=== PATIENT | female | born 2005 | race Caucasian/White ===

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

== ENCOUNTER 2023-02-27 11:19 | Emergency (ER) | payer SELFPAY ==
[~2023-02-27] VITALS: Ht 160 cm; Wt 52.2 kg
[2023-02-27 11:54] LABS: BILIRUBIN Negative (Negative); BLOOD 3+ (Negative); CLARITY Clear (Clear); COLOR Yellow (Yellow); GLUCOSE Negative (Negative); KETONE Negative (Negative); LEUKO ESTERASE Negative (Negative); NITRITE Negative (Negative); PH 6.5 (4.5-8.0); SPECIFIC GRAVITY >= 1.030 (1.001-1.030)
[2023-02-27 12:01] LABS: BASO # 0.1 10*3/uL (0.0-0.1); BASO % 1.2 % (0.0-1.0); EOS # 0.1 10*3/uL (0.0-0.4); EOS % 2.9 % (1.0-4.0); HEMATOCRIT 39.1 % (37.0-47.0); LYMPH # 1.4 10*3/uL (1.3-4.4); LYMPH % 32.8 % (27.0-41.0); MEAN CELL VOLUME 90.7 fl (81.0-99.0); MEAN CORPUSCULAR HGB 31.1 pg (27.0-31.0); MEAN CORPUSCULAR HGB CONC 34.3 g/dl (33.0-37.0); MEAN PLATELET VOLUME 10.4 fl (9.6-12.3); MONO # 0.5 10*3/uL (0.1-1.0); MONO % 10.8 % (3.0-9.0); NEUT # 2.2 10*3/uL (2.3-7.9); NEUT % 52.1 % (47.0-73.0); PLATELET COUNT AUTOMATED 217 10*3/uL (130-400); RED BLOOD COUNT 4.31 10*6/uL (4.10-5.10); RED CELL DISTRI WIDTH 11.9 % (0-14.5); WHITE BLOOD COUNT 4.2 10*3/uL (4.8-10.8)
[2023-02-27 12:13] LABS: ACT PARTIAL THROMBO TIME 30.8 SECONDS (20.0-32.1); INTERNATIONAL NORM RATIO 1.1 (2.0-3.5)
[2023-02-27 12:25] LABS: BACTERIA TRACE; EPITHELIAL CELLS 16-20
[2023-02-27 12:26] LABS: ALKALINE PHOSPHATASE 73 U/L (46-116); BETA-HCG, QUANT < 3.0 mIU/mL (3-10); BUN 10 mg/dl (9-23); CHLORIDE 107 mmol/L (98-107); LIPASE 40 U/L (12-53); POTASSIUM 3.8 mmol/L (3.4-5.1); SGPT/ALT 13 U/L (10-49); TOTAL PROTEIN 7.8 gm/dL (6.0-8.0)
== END 2023-02-27 13:03 | disposition home or self-care (01) ==
LOC: ED 11:19
PROVIDERS: Internal Medicine
DX: N93.9 Abnormal uterine and vaginal bleeding, unspecified (principal); E16.2 Hypoglycemia, unspecified; Z98.890 Other specified postprocedural states; Z79.899 Other long term (current) drug therapy

== ENCOUNTER 2024-03-06 00:08 | Emergency (ER) | payer OTHER ==
[~2024-03-06] VITALS: Ht 160 cm; Wt 54.9 kg
[2024-03-06] MEDS ORDERED: ACETAMINOPHEN 325 MG TAB PO ONE (00:25)
== END 2024-03-06 01:29 | disposition home or self-care (01) ==
LOC: ED 00:08
DX: O26.892 Other specified pregnancy related conditions, second trimester (principal); F66 Other sexual disorders; Z98.890 Other specified postprocedural states; Z3A.22 22 weeks gestation of pregnancy

== ENCOUNTER 2024-04-17 14:39 | Emergency (ER) | payer OTHER ==
[~2024-04-17] VITALS: Ht 157.4 cm; Wt 59.9 kg
[2024-04-17] MEDS ORDERED: Ondansetron Hydrochloride 4 MG TAB PO ONE (15:25)
[2024-04-17 15:37] LABS: BASO # 0.1 10*3/uL (0.0-0.1); BASO % 0.5 % (0.0-1.0); EOS # 0.1 10*3/uL (0.0-0.4); HEMATOCRIT 31.1 % (37.0-47.0); LYMPH # 1.5 10*3/uL (1.3-4.4); LYMPH % 13.9 % (27.0-41.0); MEAN CORPUSCULAR HGB 32.5 pg (27.0-31.0); MEAN CORPUSCULAR HGB CONC 35.4 g/dl (33.0-37.0); MEAN PLATELET VOLUME 9.4 fl (9.6-12.3); MONO # 1.1 10*3/uL (0.1-1.0); MONO % 10.9 % (3.0-9.0); NEUT # 7.6 10*3/uL (2.3-7.9); NEUT % 72.7 % (47.0-73.0); PLATELET COUNT AUTOMATED 261 10*3/uL (130-400); RED BLOOD COUNT 3.38 10*6/uL (4.10-5.10); RED CELL DISTRI WIDTH 12.7 % (0-14.5); WHITE BLOOD COUNT 10.5 10*3/uL (4.8-10.8)
[2024-04-17 16:03] LABS: ALKALINE PHOSPHATASE 82 U/L (46-116); BUN 7 mg/dl (9-23); CHLORIDE 104 mmol/L (98-107); POTASSIUM 4.1 mmol/L (3.4-5.1); SGPT/ALT 9 U/L (5-49); TOTAL PROTEIN 6.7 gm/dL (6.0-8.0)
[2024-04-17 16:24] LABS: BILIRUBIN Negative (Negative); BLOOD Negative (Negative); CLARITY Clear (Clear); COLOR Yellow (Yellow); GLUCOSE Negative (Negative); KETONE Negative (Negative); LEUKO ESTERASE Negative (Negative); NITRITE Negative (Negative); PH 6.5 (4.5-8.0); SPECIFIC GRAVITY 1.015 (1.001-1.030)
[2024-04-17 16:39] LABS: BACTERIA 1+
== END 2024-04-17 17:18 | disposition home or self-care (01) ==
LOC: ED 14:39
PROVIDERS: Physician Assistant Medical
DX: O21.8 Other vomiting complicating pregnancy (principal); R42 Dizziness and giddiness; Z98.890 Other specified postprocedural states; Z3A.28 28 weeks gestation of pregnancy

== ENCOUNTER 2025-04-22 07:32 | Emergency (ER) | payer OTHER ==
[~2025-04-22] VITALS: Ht 160 cm; Wt 51.7 kg
== END 2025-04-22 09:03 | disposition home or self-care (01) ==
LOC: ED 07:32
DX: J02.9 Acute pharyngitis, unspecified (principal); Z87.440 Personal history of urinary (tract) infections; R50.9 Fever, unspecified